=== PATIENT | female | born 1995 | race Caucasian/White ===

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

== ENCOUNTER 2017-02-27 16:09 | Emergency (ER) | payer OTHER ==
[2017-02-27 16:17] VITALS: TEMP 98.3; BMI 19.5
--- NOTE | 2017-02-27 18:29 | PDOC ---
History of Present Illness <HomarSarahcampos Jimenez - Last Filed: 02/27/17 19:07> - History of Present Illness Initial Comments: 02/27/17 19:24 The patient is a 21 year old female, with a significant past medical history of anxiety (taking zoloft) and depressed immune system, who presents to the emergency department with suprapubic discomfort with nausea today. The patient states she does not know if she is and can not recall LMP. She denies chest pain, shortness of breath, headache and dizziness. She denies fever, chills, nausea, vomit, diarrhea and constipation. She denies dysuria, frequency, urgency and hematuria. Allergies: NKDA <Farnaz Gautam - Last Filed: 02/27/17 19:27> - General Chief Complaint: Pain Stated Complaint: ABDOMINAL PAIN/UNS IF Time Seen by Provider: 02/27/17 18:01 Past History - Past Medical History GI Disorders: Yes (GERD) Other medical history: HIVES - Suicide/Smoking/Psychosocial Hx Smoking History: Never smoked Have you smoked in the past 12 months: No Information on smoking cessation initiated: No Hx Alcohol Use: No Drug/Substance Use Hx: No Substance Use Type: None <HomarPankajcampos Jimenez - Last Filed: 02/27/17 19:07> <Farnaz Gautam - Last Filed: 02/27/17 19:27> - Past Medical History Allergies/Adverse Reactions: Allergies Allergy/AdvReac Type Severity Reaction Status Date / Time No Known Allergies Allergy Verified 02/27/17 16:17 Home Medications: Ambulatory Orders Sulfamethoxazole/Trimethoprim [Bactrim Ds -] 1 tab PO BID #10 tablet 02/27/17 Review of Systems - Review of Systems Able to Perform ROS?: Yes Comments:: 02/27/17 19:25 CONSTITUTIONAL: Absent: fever, chills, diaphoresis, generalized weakness, malaise, loss of appetite HEENT: Absent: rhinorrhea, nasal congestion, throat pain, throat swelling, difficulty swallowing, mouth swelling, ear pain, eye pain, visual Changes CARDIOVASCULAR: Absent: chest pain, syncope, palpitations, irregular heart rate, lightheadedness , peripheral edema RESPIRATORY: Absent: cough, shortness of breath, dyspnea with exertion, orthopnea, wheezing, stridor, hemoptysis GASTROINTESTINAL: (+) suprapubic pain. Absent: abdominal distension, nausea, vomiting, diarrhea, constipation, melena, hematochezia GENITOURINARY: Absent: dysuria, frequency, urgency, hesitancy, hematuria, flank pain, genital pain MUSCULOSKELETAL: Absent: myalgia, arthralgia, joint swelling SKIN: Absent: rash, itching, pallor HEMATOLOGIC/IMMUNOLOGIC: Absent: easy bleeding, easy bruising, lymphadenopathy, frequent infections ENDOCRINE: Absent: unexplained weight gain, unexplained weight loss, heat intolerance, cold intolerance NEUROLOGIC: Absent: headache, focal weakness or paresthesias, dizziness, unsteady gait, seizure, mental status changes, bladder or bowel incontinence PSYCHIATRIC: Absent: anxiety, depression, suicidal or homicidal ideation, hallucinations. <Farnaz Gautam - Last Filed: 02/27/17 19:27> *Physical Exam - Vital Signs Last Vital Signs Temp Pulse Resp BP Pulse Ox 98.3 F 121 H 19 114/67 100 02/27/17 16:15 02/27/17 16:15 02/27/17 16:15 02/27/17 16:15 02/27/17 16:15 <Sarah Graf - Last Filed: 02/27/17 19:07> - Vital Signs Last Vital Signs Temp Pulse Resp BP Pulse Ox 98.3 F 121 H 19 114/67 100 02/27/17 16:15 02/27/17 16:15 02/27/17 16:15 02/27/17 16:15 02/27/17 16:15 - Physical Exam Comments: 02/27/17 19:26 GENERAL: Well developed, well nourished. Awake and alert. No acute distress. HEENT: Normocephalic, atraumatic. PERRLA, EOMI. No conjunctival pallor. Sclera are non- icteric. Moist mucous membranes. Oropharynx is clear. NECK: Supple. Full ROM. No JVD. Carotid pulses 2+ and symmetric, without bruits. No thyromegaly. No lymphadenopathy. CARDIOVASCULAR: Regular rate and rhythm. No murmurs, rubs, or gallops. Distal pulses are 2+ and symmetric. PULMONARY: No evidence of respiratory distress. Lungs clear to auscultation bilaterally. No wheezing, rales or rhonchi. ABDOMINAL: (+) Suprapubic tenderness. Soft. Non-distended. No rebound or guarding. No organomegaly. Normoactive bowel sounds. MUSCULOSKELETAL Normal range of motion at all joints. No bony deformities or tenderness. No CVA tenderness. EXTREMITIES: No cyanosis. No clubbing. No edema. No calf tenderness. SKIN: Warm and dry. Normal capillary refill. No rashes. No jaundice. NEUROLOGICAL: Alert, awake, appropriate. Cranial nerves 2-12 intact. Normoreflexic in the upper and lower extremities. Normal speech. Toes are down-going bilaterally. Gait is normal without ataxia. PSYCHIATRIC: Cooperative. Good eye contact. Appropriate mood and affect. <Farnaz Gautam - Last Filed: 02/27/17 19:27> ED Treatment Course - ADDITIONAL ORDERS Additional order review: Laboratory Results 02/27/17 02/27/17 18:29 18:29 Urine Color Yellow Urine Appearance Slcloudy Urine pH 5.0 Urine Protein Negative Urine Glucose (UA) Negative Urine Ketones Negative Urine Blood 2+ H Urine Nitrite Positive Urine Bilirubin Negative Urine Urobilinogen Negative Urine RBC 2 Urine WBC 1 Ur Epithelial Cells Few Urine Bacteria Few Urine Mucus Rare Urine HCG, Qual Negative - Medications Given in the ED: ED Medications Discontinued Medications Generic Name Dose Route Start Last Admin Trade Name Freq PRN Reason Stop Dose Admin Trimethoprim/Sulfamethoxazole 1 each 02/27/17 18:55 02/27/17 19:06 Bactrim Ds - PO 02/27/17 18:56 1 each ONCE ONE Administration <Farnaz Gautam - Last Filed: 02/27/17 19:27> Medical Decision Making - Medical Decision Making 02/27/17 18:29 21-year-old female presents with 2 days of suprapubic discomfort. She has some intermittent nausea but no vomiting, no fever, no chills, no diarrhea. She has a benign abdominal exam lmp 01/26/17 02/27/17 18:31 <Sarah Graf - Last Filed: 02/27/17 19:07> *DC/Admit/Observation/Transfer <Sarah Graf - Last Filed: 02/27/17 19:07> - Attestations Scribe Attestion: 02/27/17 19:26 Documentation prepared by Farnaz Gautam, acting as medical assistant secretary for Sarah Graf MD <Farnaz Gautam - Last Filed: 02/27/17 19:27> Diagnosis at time of Disposition: UTI (urinary tract infection) Qualifiers: Urinary tract infection type: site unspecified Hematuria presence: without hematuria Qualified Code(s): N39.0 - Urinary tract infection, site not specified - Discharge Dispostion Disposition: HOME Condition at time of disposition: Stable - Prescriptions Prescriptions: Sulfamethoxazole/Trimethoprim [Bactrim Ds -] 1 tab PO BID #10 tablet - Patient Instructions Printed Discharge Instructions: DI for Urinary Tract Infection (UTI) Additional Instructions: please olive picker your antibiotics
[2017-02-27 18:46] LABS: URINE APPEARANCE SLCLOUDY; URINE BILIRUBIN NEGATIVE (NEGATIVE); URINE BLOOD 2+ (NEGATIVE); URINE COLOR YELLOW; URINE GLUCOSE (UA) NEGATIVE (NEGATIVE); URINE KETONE NEGATIVE (NEGATIVE); URINE NITRITE POSITIVE (NEGATIVE); URINE PROTEIN NEGATIVE (NEGATIVE); URINE UROBILINOGEN NEGATIVE mg/dL (0.2-1.0)
[2017-02-27] MEDS ORDERED: SULFAMETHOXAZOLE/TRIMETHOPRIM 800MG/160MG D.S. TABLET PO ONE (18:55)
[2017-02-27 18:56] LABS: URINE BACTERIA FEW /hpf (NONE SEEN); URINE MUCUS RARE; URINE RBC 2 /hpf (0-3); URINE WBC 1 /hpf (3-5)
[2017-02-27] MEDS ORDERED: SULFAMETHOXAZOLE/TRIMETHOPRIM 800MG/160MG D.S. TABLET ONE (19:02)
[2017-02-27 19:28] VITALS: BP 107/71; PULSE 90
[2017-02-27 22:12] LABS: URINE LEUK ESTERASE TRACE (NEGATIVE)
--- NOTE | 2017-03-02 12:03 | PDOC ---
Patient Follow-up (Call Back) - Post ED Follow - Up Condition at time of discharge: Stable Disposition at time of original discharge: HOME Reason for Call Back: Abnwl. Microbiology (Patient currently on Bactrim for treatment of UTI. Urine culture preliminary shows lactose fermenting negative bacilli which should cover including Escherichia coli. Will await final results)
== END 2017-02-27 19:28 | disposition home or self-care (01) ==
LOC: JER 16:09
DX: N39.0 Urinary tract infection, site not specified (principal); F41.9 Anxiety disorder, unspecified; K21.9 Gastro-esophageal reflux disease without esophagitis
CPT/HCPCS: 81003; 81015; 84703; 87086; 87186; 99282-25

== ENCOUNTER 2017-05-11 23:38 | Emergency (ER) | payer OTHER ==
--- NOTE | 2017-05-11 23:47 | PDOC ---
History of Present Illness - General History Source: Patient Exam Limitations: No Limitations - History of Present Illness Initial Comments: 05/12/17 00:28 The patient is a 21 year old female presenting with her boyfriend, with a significant past medical history of GERD and auto immune urticaria, who presents to the emergency department with a dry persistent cough, headache and chest pain. She reports that her cough has been persistent and constant. She describes her headache as ranging from mild to moderate, without radiation or modifying factors. She reports that at times she does get chest pain, which she notes consists of a burning sensation on her chest. She denies taking her temperature at home but notes that she felt hot. She denies any recent illness. The patient denies shortness of breath, and dizziness. Denies fever, chills, nausea, vomit, diarrhea and constipation. Allergies: None Past surgical history: None reported Social history: No alcohol, tobacco or drug use reported <Zak Nava - Last Filed: 05/12/17 00:28> <Benji Sanches - Last Filed: 05/12/17 00:57> - General Stated Complaint: COUGHING Time Seen by Provider: 05/11/17 23:47 Past History <Zak Nava - Last Filed: 05/12/17 00:28> - Past Medical History GI Disorders: Yes (GERD) - Suicide/Smoking/Psychosocial Hx Smoking History: Never smoked Have you smoked in the past 12 months: No Hx Alcohol Use: No Drug/Substance Use Hx: No Substance Use Type: None <Benji Sanches - Last Filed: 05/12/17 00:57> - Past Medical History Allergies/Adverse Reactions: Allergies Allergy/AdvReac Type Severity Reaction Status Date / Time No Known Allergies Allergy Verified 05/11/17 23:56 Home Medications: Ambulatory Orders Albuterol Sulfate Inhaler - [Ventolin Hfa Inhaler -] 1 - 2 inh PO Q4H #1 inhaler 05/12/17 Review of Systems - Review of Systems Able to Perform ROS?: Yes Comments:: 05/12/17 00:26 Constitutional: No recent illness; no fever ENT: No sore throat Cardiovascular: No palpitations; no chest pain Pulmonary: (+) Cough. No trouble breathing Gastrointestinal: No nausea; no vomiting; no diarrhea Genitourinary: No urinary problems; no hematuria Skin: No rash Lymph system: No swollen glands Musculoskeletal: No joint swelling Neurological: (+) Headache. No weakness; oo numbness; No vertigo; no lightheadedness Psychiatric:No anxiety; no depression ROS STATEMENT A complete review of 10 out of 10 review of systems is taken and is negative apart from what is previously mentioned below and in the HPI. <Zak Nava - Last Filed: 05/12/17 00:28> *Physical Exam - Vital Signs Last Vital Signs Temp Pulse Resp BP Pulse Ox 98.4 F 106 H 20 122/47 97 05/11/17 23:56 05/11/17 23:56 05/11/17 23:56 05/11/17 23:56 05/11/17 23:56 - Physical Exam Comments: 05/12/17 00:27 Vitals: Triage vital signs reviewed General Appearance: No acute distress, well nourished, well developed Head: Atraumatic Eyes: Pupils equal reactive round, extraocular movement intact Ears: TM's normal bilaterally Nose: Nares patent bilaterally; no nasal congestion Throat: Posterior oropharynx without erythema, mucous membranes moist Neck: Supple; No nuchal rigidity Chest Wall: Nontender Cardiac: Regular rate and rhythm, no murmurs, no rubs, no gallops Lungs: Clear to auscultation bilateral, good air movement bilaterally Abdomen: Soft, nondistended, normal bowel sounds, nontender to palpation Rectal: Exam deferred Extremities: Full range of motion to all extremities, no cyanosis, clubbing, or edema Skin: Warm and dry, no rashes or lesions, no rash, no petechiae Neuro: AOX3; Cranial Nerves 2-12 grossly intact, Strength intact to all extremities, Sensation intact to all extremities, gait normal Psych: Normal mood, normal affect <Zak Nava - Last Filed: 05/12/17 00:28> Medical Decision Making - Medical Decision Making 05/12/17 00:56 History and examination consistent with postviral reactive airway disease Status post 1 DuoNeb patient feels much better coughing improved We'll discharge with MDI and have patient follow up with PCP this week. No acute findings on lung exam no indication for x-ray at this point Findings, the need for follow-up, strict return instructions discussed with patient. <Benji Sanches - Last Filed: 05/12/17 00:57> *DC/Admit/Observation/Transfer - Attestations Scribe Attestion: 05/12/17 00:24 Documentation prepared by Zak Nava, acting as medical resident for Benji Sanches MD <Zak Nava - Last Filed: 05/12/17 00:28> - Discharge Dispostion Admit: No <Benji Sanches - Last Filed: 05/12/17 00:57> Diagnosis at time of Disposition: Viral syndrome - Patient Instructions Printed Discharge Instructions: DI for Viral Upper Respiratory Infection -- Adult Additional Instructions: Ventolin metered-dose inhaler as prescribed. Follow-up with her primary care provider this week. Return to the emergency department for any severe worsening symptoms or for any concerns.
[2017-05-11 23:57] VITALS: BP 122/47; PULSE 106; TEMP 98.4; BMI 18.3
[2017-05-12] MEDS ORDERED: ALBUTEROL SO4 2.5/IPRATROPIUM 0.5 INH SOL 3 ML VIAL.NEB. NEB ONE ×2 (00:03→00:24)
== END 2017-05-12 01:08 | disposition home or self-care (01) ==
LOC: JER 23:38
PROC: 3E0F7GC Introduction of Other Therapeutic Substance into Respiratory Tract, Via Natural or Artificial Opening (ICD-10-PCS; principal; 2017-05-11)
DX: J06.9 Acute upper respiratory infection, unspecified (principal); B97.89 Other viral agents as the cause of diseases classified elsewhere; K21.9 Gastro-esophageal reflux disease without esophagitis; Z87.2 Personal history of diseases of the skin and subcutaneous tissue
CPT/HCPCS: 99281-25

== ENCOUNTER 2017-10-22 16:17 | Emergency (ER) | payer OTHER ==
[2017-10-22 16:28] VITALS: BP 117/71; PULSE 126; TEMP 98.4; BMI 20.2
--- NOTE | 2017-10-22 16:49 | PDOC ---
History of Present Illness - General Chief Complaint: Psychiatric Stated Complaint: COUGHING/ANXIETY Time Seen by Provider: 10/22/17 16:44 - History of Present Illness Initial Comments: 10/22/17 16:48 21 yo F with h/o GERD, anxiety who p/w CP, cough, and SOB. Patient reports 2 days of non pleuritic, non radiating, retrosternal chest tightness, nausea without vomitting, tremulousness, heart racing, and clear productive cough. No dientifiable triggers. Denies recent social triggers. Recovering from recent viral URI. Also endorses suprapubic discomfort x 1 day. No dysuria, hematuria, vaginal bleeding/burn/itch/discharge. Recently ran out of Zoloft medication. Scheduled to f/w psych at end of month. Denies SI, HI, self harm behavior. Denies F/C, hemoptysis, wheezing, palpitations, leg swelling/pain, diaphoresis, abdominal pain, diarrhea, constipation, urinary complaints, weakness, lightheadedness, sensory changes. PMHx: as noted above. H/o nml endoscopy. On depot contraception. Denies h/o PE/ DVT. Denies h/o cardiac or endocrinology workup. ROS: as noted above SHx: Denies Etoh. Denies h/o IVDA. Endorses recreational hookah/tobacco. Denies recent travel, surgery, or trauma. Allergies: NKDA PMD: Dr. Stephanie Adler, psychiatry [facility]. Past History - Past Medical History Allergies/Adverse Reactions: Allergies Allergy/AdvReac Type Severity Reaction Status Date / Time No Known Allergies Allergy Verified 10/22/17 16:24 Home Medications: Ambulatory Orders Albuterol Sulfate Inhaler - [Ventolin Hfa Inhaler -] 1 - 2 inh PO Q4H #1 inhaler 05/12/17 Sertraline HCl [Zoloft] 100 mg PO DAILY 14 Days #14 tablet MDD 1 tab 10/22/17 COPD: No GI Disorders: Yes (GERD) Psychiatric Problems: Yes (ANXIETY) - Suicide/Smoking/Psychosocial Hx Smoking History: Never smoked Have you smoked in the past 12 months: No Hx Alcohol Use: No Drug/Substance Use Hx: No Substance Use Type: None Review of Systems - Review of Systems Comments:: 10/22/17 16:48 GENERAL/CONSTITUTIONAL: No fever or chills. No weakness. HEAD, EYES, EARS, NOSE AND THROAT: No change in vision. No ear pain or discharge. No sore throat. CARDIOVASCULAR: + chest pain and shortness of breath RESPIRATORY: + cough. No wheezing, or hemoptysis. GASTROINTESTINAL: No nausea, vomiting, diarrhea or constipation. GENITOURINARY: + Suprpapubic pain. No dysuria, frequency, or change in urination. MUSCULOSKELETAL: No joint or muscle swelling or pain. No neck or back pain. SKIN: No rash NEUROLOGIC: No headache, vertigo, loss of consciousness, or change in strength/ sensation. ENDOCRINE: No increased thirst. No abnormal weight change HEMATOLOGIC/LYMPHATIC: No anemia, easy bleeding, or history of blood clots. ALLERGIC/IMMUNOLOGIC: No hives or skin allergy. *Physical Exam - Vital Signs Last Vital Signs Temp Pulse Resp BP Pulse Ox 98.4 F 126 H 19 117/71 96 10/22/17 16:24 10/22/17 16:24 10/22/17 16:24 10/22/17 16:24 10/22/17 16:24 - Physical Exam Comments: 10/22/17 16:48 GENERAL: Awake, alert, and fully oriented, in no acute distress HEAD: No signs of trauma, normocephalic, atraumatic EYES: PERRLA, EOMI, sclera anicteric, conjunctiva clear ENT: Hearing grossly normal, nares patent, oropharynx clear without exudates. Moist mucosa NECK: Normal ROM, supple, no lymphadenopathy, JVD, or masses LUNGS: No distress, speaks full sentences, clear to auscultation bilaterally HEART: Irregular rate and nml rhythm, normal S1 and S2, no murmurs, rubs or gallops, peripheral pulses normal and equal bilaterally. ABDOMEN: + epigastric ttp. Soft, nontender, normoactive bowel sounds. No guarding, no rebound. No masses EXTREMITIES : Normal inspection, Normal range of motion, no edema. No clubbing or cyanosis. SKIN: Warm, Dry, normal turgor, no rashes or lesions noted ED Treatment Course - LABORATORY CBC & Chemistry Diagram: 10/22/17 17:00 10/22/17 17:00 Medical Decision Making - Medical Decision Making 10/22/17 17:16 11 yo F with h/o GERD, anxiety who p/w CP, SOB, tremulousness, and cough x 2 days. HR 126, vitals otherwise wnl, AF, A&OX3. Low risk PE based on Weils criteria. R/o PNA. ACS/NJ r/o. Probable anxiety related disorder. Will assess for thyroid dysfunction, electrolyte abnml, toxic or metabolic derangements,acid -base disturbances, or underlying infection. ED Course: CBC,CMP,Cardiac Pr., TSH EKG, CXR UA, Urine Cx. 10/22/17 18:08 CBC: Unremarkable CK: 209- likely 2/2 tremors. 10/22/17 20:21 Preliminary CXR Unremarkable EKG: NSR, with nml interval and axis. Absent acute SIMONE, STD, or TWI. Motion artifact present. Zoloft sent to pharmacy. Patient stable for d/c with return precautions. Advised to f/u with PMD and psych. Psych apt. scheduled for this Sunday with pt. outpt. provider. 10/22/17 21:18 CXR: Unremarkable. No acute pathology on preliminary read. *DC/Admit/Observation/Transfer Diagnosis at time of Disposition: Cough, Chest pain at rest - Prescriptions Prescriptions: Sertraline HCl [Zoloft] 100 mg PO DAILY 14 Days #14 tablet MDD 1 tab - Referrals Referrals: Stephanie Juárez MD [Primary Care Provider] - - Patient Instructions Printed Discharge Instructions: DI for Anxiety -- Adult Additional Instructions: Please return to the emergency department with any new or worsening symptoms or concerns. Please follow up with your primary care physician within 72 hours. P - Post Discharge Activity - Attestations Physician Attestion: 10/22/17 17:33 I attest to the information provided in this note.
[2017-10-22] MEDS ORDERED: ONDANSETRON 4 MG TABLET PO ONE (17:15)
[2017-10-22] MEDS ORDERED: MAG HYDROX/AL HYDROX/SIMETH 30 ML UNIT-DOSE CUP PO ONE (17:15)
[2017-10-22] MEDS ORDERED: RANITIDINE HCL 150 MG TABLET (FP) PO ONE (17:15)
[2017-10-22 17:20] LABS: BASO % 0.6 % (0-2.0); EOS % 0.9 % (0-4.5); HEMATOCRIT 40.4 % (32.4-45.2); HEMOGLOBIN 13.3 GM/dL (10.7-15.3); LYMPH % 23.8 % (8-40); MCH 28.2 pg (25.7-33.7); MEAN CELL VOLUME 85.4 fl (80-96); MEAN PLT VOLUME 7.9 fl (7.5-11.1); MONO % 9.5 % (3.8-10.2); NEUT % 65.2 % (42.8-82.8); PLATELET COUNT 387 K/MM3 (134-434); RBC 4.73 M/mm3 (3.60-5.2); RDW 13.2 % (11.6-15.6); WHITE BLOOD COUNT 7.7 K/mm3 (4.0-10.0)
[2017-10-22 17:28] LABS: URINE APPEARANCE SLCLOUDY; URINE BILIRUBIN NEGATIVE (<2.0 mg/dL); URINE BLOOD 2+ (NEGATIVE); URINE COLOR YELLOW; URINE GLUCOSE (UA) NEGATIVE (NEGATIVE); URINE KETONE NEGATIVE (NEGATIVE); URINE LEUK ESTERASE NEGATIVE (NEGATIVE); URINE NITRITE NEGATIVE (NEGATIVE); URINE PROTEIN NEGATIVE (NEGATIVE)
[2017-10-22 17:39] LABS: INR 1.26 (0.82-1.09); PROTHROMBIN TIME (PATIENT) 14.2 SEC (9.7-13.0)
[2017-10-22 17:47] LABS: ALBUMIN 4.4 g/dl (3.4-5.0); ALK PHOS 133 U/L (45-117); ANION GAP 8 (8-16); BILIRUBIN,TOTAL 0.4 mg/dL (0.2-1.0); BLOOD UREA NITROGEN 12 mg/dL (7-18); CHLORIDE 107 mmol/L (98-107); CO2 25 mmol/L (21-32); CREATININE 0.8 mg/dL (0.55-1.02); GLUCOSE,RANDOM 83 mg/dL (74-106); POTASSIUM 3.7 mmol/L (3.5-5.1); SGOT/AST 24 U/L (15-37); SGPT/ALT 38 U/L (12-78); SODIUM 140 mmol/L (136-145); TOT PROT 8.7 g/dl (6.4-8.2)
--- NOTE | 2017-10-22 18:03 | PDOC ---
Attending Attestation - HPI HPI: 10/22/17 18:04 The patient is a 21 year old female with a significant PMH of GERD and anxiety who presents to the emergency department with cough, lower abdominal pain and anxiety. The patient is complaining of non productive cough and suprapubic discomfort. The patient also endorses increased anxiety secondary to her mother moving away recently. The patient appears tremulous and anxious during presentation. The patient denies cardiac work-up in the past. Patient has recently run out of [employer]. The patient has a scheduled appointment with her therapist on Sunday. The patient denies palpitations, leg swelling, shortness of breath, headache and dizziness. Denies fever, chills, nausea, vomit, diarrhea and constipation. Denies vaginal bleeding or burning, dysuria, frequency, urgency and hematuria. Allergies: NKA Past surgical history: Social history: No reported alcohol or drug use. The patient endorses hookah/ tobacco use occasionally. PCP: Dr. Stephanie Adler, psychiatry [facility]. - Physicial Exam PE: 10/22/17 18:11 GENERAL: (+) Anxious, tremulous. Well-appearing, well-nourished. HEENT: Normocephalic, atraumatic. PERRL, EOM intact. CARDIOVASCULAR: Normal S1, S2. Regular rate and rhythm. PULMONARY: Clear to auscultation bilaterally. ABDOMEN: (+) Suprapubic discomfort. Soft, non-distended, non-tender. EXTREMITIES: Normal ROM in all four extremities. No gross deformities. SKIN: Warm, dry. No rash NEUROLOGICAL: No focal neurological deficits. <Kindra Maldonado - Last Filed: 10/22/17 18:11> - Resident Resident Name: Coy Whitmore - ED Attending Attestation I have performed the following: I have examined & evaluated the patient, The case was reviewed & discussed with the resident, I agree w/resident's findings & plan, Exceptions are as noted - Medical Decision Making 10/22/17 21:18 89-year-old female with extensive history of anxiety presents with complaints of palpitations, cough, increased anxiety and suprapubic discomfort. Labs reviewed, chest x-ray, no infiltrates, no pneumothorax. Chemistries unremarkable. Patient has negative test. EKG is regular rate and rhythm with no signs of ischemia or arrhythmia. Impression anxiety. Patient has appointment with her therapist this Sunday and will follow-up <Sarah Graf - Last Filed: 10/22/17 21:19>
[2017-10-22] MEDS ORDERED: ONDANSETRON *ODT* 4 MG TABLET ONE (18:15)
[2017-10-22] MEDS ORDERED: RANITIDINE HCL 150 MG TABLET (FP) ONE ×2 (18:15→18:27)
[2017-10-22] MEDS ORDERED: MAG HYDROX/AL HYDROX/SIMETH 30 ML UNIT-DOSE CUP ONE (18:15)
[2017-10-22 19:09] LABS: EPI CELLS RARE /HPF (FEW); URINE MUCUS MANY
[2017-10-22] MEDS ORDERED: SERTRALINE HCL 50 MG TABLET (FP) PO ONE (20:20)
[2017-10-22] MEDS ORDERED: SERTRALINE HCL 50 MG TABLET (FP) ONE (20:57)
--- NOTE | 2017-10-23 13:14 | EKG ---
Test Reason : Blood Pressure : / mmHG Vent. Rate : 086 BPM Atrial Rate : 086 BPM P-R Int : 124 ms QRS Dur : 074 ms QT Int : 376 ms P-R-T Axes : 060 060 041 degrees QTc Int : 449 ms NORMAL SINUS RHYTHM WITH SINUS ARRHYTHMIA NORMAL ECG NO PREVIOUS ECGS AVAILABLE Confirmed by MD JONY, VANDANA ([id number]) on 10/23/2017 1:13:47 PM Referred By: Confirmed By:VANDANA BORGES MD
== END 2017-10-22 21:43 | disposition home or self-care (01) ==
LOC: JER 16:17
DX: R07.89 Other chest pain (principal); F41.9 Anxiety disorder, unspecified; K21.9 Gastro-esophageal reflux disease without esophagitis
CPT/HCPCS: 36415; 71046-TC-FY; 80053; 81003; 81015; 82550; 82553; 84443; 84484; 84703; 85025; 85610; 87086; 93005; 93010; 99281-25

== ENCOUNTER 2018-03-07 20:18 | Emergency (ER) | payer OTHER ==
[2018-03-07 20:52] VITALS: BP 123/68; PULSE 88; TEMP 98; BMI 20.2
--- NOTE | 2018-03-07 20:53 | PDOC ---
Rapid Medical Evaluation Time Seen by Provider: 03/07/18 20:50 Medical Evaluation: Allergies Allergy/AdvReac Type Severity Reaction Status Date / Time No Known Allergies Allergy Verified 10/22/17 16:24 03/07/18 20:51 Pt presents to the ED with R knee pain. Made worse with movement Exam: ambulatory Orders: x-ray, urine Pt to proceed to ED for further evaluation Discharge Disposition - Diagnosis Knee pain - Referrals - Patient Instructions - Post Discharge Activity
[2018-03-07] MEDS ORDERED: IBUPROFEN 600 MG TABLET (FP) PO ONE ×2 (22:34)
--- NOTE | 2018-03-07 22:40 | PDOC ---
History of Present Illness - General Chief Complaint: Pain Stated Complaint: RT KNEE INJURY Time Seen by Provider: 03/07/18 20:50 History Source: Patient Exam Limitations: No Limitations - History of Present Illness Initial Comments: 03/07/18 22:35 HISTORY OF PRESENT ILLNESS: 22-year-old woman without significant medical history presents emergency Department with atraumatic right knee pain tonight status post slip and fall. Patient states she was standing on the running board of a vehicle when she lost her balance causing her to slip. She reports "I knee went one way my body went the other." Patient states she has no pain while walking but does feel instability when walking especially up and down stairs. No recent travel or sick contacts. PAST MEDICAL HISTORY: Asthma, anxiety SURGICAL HISTORY: Denies ALLERGIES: No known drug allergies REVIEW OF SYSTEMS General/Constitutional: Denies fever or chills. Denies weakness, weight change. HEENT: Denies change in vision. Denies ear pain or discharge. Denies sore throat. Cardiovascular: Denies chest pain or shortness of breath. Respiratory: Denies cough, wheezing, or hemoptysis. Gastrointestinal: Denies nausea, vomiting, diarrhea or constipation. Denies rectal bleeding. Genitourinary: Denies dysuria, frequency, or change in urination. Musculoskeletal: Right knee pain. Denies neck or back pain. Skin and breasts: Denies rash or easy bruising. Neurologic: Denies headache, vertigo, loss of consciousness, or loss of sensation. Psychiatric: Denies depression or anxiety. Endocrine: Denies increased thirst. Denies abnormal weight change. Hematologic/Lymphatic: Denies anemia, easy bleeding, or history of blood clots. Allergic/Immunologic: Denies hives or skin allergy. Denies latex allergy. PHYSICAL EXAM General Appearance: Well-appearing, appropriately dressed. No apparent distress , no intoxication. HEENT: EOMI, PERRLA, normal ENT inspection, normal voice, TMs normal, pharynx normal. No conjunctival pallor. No photophobia, scleral icterus. Neck: Supple. Trachea midline. No tenderness, rigidity, carotid bruit, stridor , lymphadenopathy, or thyromegaly. Respiratory/Chest: Lungs CTAB. No shortness of breath, chest tenderness, respiratory distress, accessory muscle use. No crackles, rales, rhonchi, stridor , wheezing, dullness Cardiovascular: RRR. S1, S2. No JVD, murmur, bradycardia, tachycardia. Vascular Pulses: Dorsalis-Pedis (R): 2+, Dorsalis-Pedis (L): 2+ Gastrointestinal/Abdominal: Normal bowel sounds. Abdomen soft, non-distended. No tenderness or rebound tenderness. No organomegaly, pulsatile mass, guarding, hernia, hepatomegaly, splenomegaly. Lymphatic: No adenopathy, tenderness. Musculoskeletal/Extremities: Normal inspection. FROM of all extremities, normal capillary refill. Pelvis Stable. No CVA tenderness. No tenderness to extremities, pedal edema, swelling, erythema or deformity. -Drake's test. Integumentary: Appropriate color, dry, warm. No cyanosis, erythema, jaundice or rash Neurologic: fine artist II-XII intact. Fully oriented, alert. Appropriate mood/affect. Motor strength 5/5. No appreciable EOM palsy, facial droop or sensory deficit. Past History - Past Medical History Allergies/Adverse Reactions: Allergies Allergy/AdvReac Type Severity Reaction Status Date / Time No Known Allergies Allergy Verified 03/07/18 20:52 Home Medications: Ambulatory Orders Sertraline HCl [Zoloft] 100 mg PO DAILY 14 Days #14 tablet MDD 1 tab 10/22/17 COPD: No GI Disorders: Yes (GERD) Psychiatric Problems: Yes (ANXIETY) - Suicide/Smoking/Psychosocial Hx Smoking History: Never smoked Have you smoked in the past 12 months: No Hx Alcohol Use: No Drug/Substance Use Hx: No Substance Use Type: None *Physical Exam - Vital Signs Last Vital Signs Temp Pulse Resp BP Pulse Ox 98 F 88 18 123/68 100 03/07/18 20:50 03/07/18 20:50 03/07/18 20:50 03/07/18 20:50 03/07/18 20:50 ED Treatment Course - ADDITIONAL ORDERS Additional order review: Laboratory Results 03/07/18 21:00 Urine HCG, Qual Negative Medical Decision Making - Medical Decision Making 03/07/18 22:35 A/P: 22-year-old female with right knee pain status post slip and fall Negative Drake test X-rays performed by rapid medical evaluation as read by me: No acute fractures or dislocations. Motrin 600 mg orally now Discharge home with orthopedic follow-up with Dr. Chavez. *DC/Admit/Observation/Transfer Diagnosis at time of Disposition: Knee pain Qualifiers: Chronicity: acute Laterality: right Qualified Code(s): M25.561 - Pain in right knee - Discharge Dispostion Disposition: HOME Condition at time of disposition: Stable Decision to Admit order: No - Referrals - Patient Instructions Additional Instructions: Dr. Austin Chavez has orthopedic clinic hours for Medicare/Medicaid Orthopedic referral patients Office is located on [facility] ; call for appointment Clinic is open Sunday from 9 AM to 12 noon and afternoon from to 4pm - Post Discharge Activity Forms/Work/School Notes: Back to Work
== END 2018-03-07 22:39 | disposition home or self-care (01) ==
LOC: JERFT 20:18
DX: M25.561 Pain in right knee (principal); V48.7XXA Person on outside of car injured in noncollision transport accident in traffic accident, initial encounter; Y92.414 Local residential or business street as the place of occurrence of the external cause; Y93.89 Activity, other specified; Y99.8 Other external cause status
CPT/HCPCS: 73560-TC-RT-FY; 84703; 99282-25

== ENCOUNTER 2018-06-16 10:39 | Emergency (ER) | payer OTHER ==
[2018-06-16 10:54] VITALS: BP 106/67; PULSE 89; TEMP 98.3; BMI 21.2
--- NOTE | 2018-06-16 11:37 | PDOC ---
History of Present Illness - General Chief Complaint: Cold Symptoms Stated Complaint: COUGHING Time Seen by Provider: 06/16/18 11:18 History Source: Patient Exam Limitations: No Limitations - History of Present Illness Timing/Duration: reports: just prior to arrival Associated Symptoms: reports: cough, nasal congestion, nasal drainage, sore throat. denies: dizziness, earache, facial pain (sorethroat and cough X 3 days) , fever/chills, headache, shortness of breath, sinus infection Past History - Travel Traveled outside of the country in the last 30 days: No Close contact w/someone who was outside of country & ill: Yes - Past Medical History Allergies/Adverse Reactions: Allergies Allergy/AdvReac Type Severity Reaction Status Date / Time No Known Allergies Allergy Verified 03/07/18 20:52 Home Medications: Ambulatory Orders Sertraline HCl [Zoloft] 100 mg PO DAILY 14 Days #14 tablet MDD 1 tab 10/22/17 Benzonatate [Tessalon Pearls -] 100 mg PO TID #21 capsule 06/16/18 Ibuprofen 600 mg PO ACDIN 7 Days #21 tablet 06/16/18 COPD: No GI Disorders: Yes (GERD) Psychiatric Problems: Yes (ANXIETY) - Immunization History Immunization Up to Date: No - Suicide/Smoking/Psychosocial Hx Smoking History: Never smoked Have you smoked in the past 12 months: No Information on smoking cessation initiated: No Hx Alcohol Use: No Drug/Substance Use Hx: No Substance Use Type: None Review of Systems - Review of Systems Is the patient limited Turkmen proficient: No Constitutional: No: Chills, Fever HEENTM: Yes: Throat Pain. No: Ocular Prothesis, Ear Discharge, Nose Pain, Hearing Loss, Throat Swelling, Mouth Pain, Mouth Swelling Respiratory: Yes: Cough, Productive cough. No: Orthopnea, Shortness of Breath, Wheezing Cardiac (ROS): No: Chest Pain, Lightheadedness Neurological: No: Headache, Numbness *Physical Exam - Vital Signs Last Vital Signs Temp Pulse Resp BP Pulse Ox 98.3 F 89 18 106/67 99 06/16/18 10:50 06/16/18 10:50 06/16/18 10:50 06/16/18 10:50 06/16/18 10:50 - Physical Exam General Appearance: Yes: Nourished HEENT: positive: Pharyngeal Erythema, Tonsillar Erythema, Nasal Congestion, Rhinorrhea. negative: Tonsillar Exudate, Sinus Tenderness, Excessive drooling Respiratory/Chest: positive: Lungs Clear, Normal Breath Sounds Cardiovascular: positive: Regular Rhythm, Regular Rate, S1, S2 Neurologic: positive: ergonomist II-XII NML intact, Fully Oriented, Alert Moderate Sedation - Procedure Monitoring Vital Signs: Procedure Monitoring Vital Signs Temperature 98.3 F 06/16/18 10:50 Pulse Rate 89 06/16/18 10:50 Respiratory Rate 18 06/16/18 10:50 Blood Pressure 106/67 06/16/18 10:50 O2 Sat by Pulse Oximetry (%) 99 06/16/18 10:50 Medical Decision Making - Medical Decision Making 06/16/18 11:36 22-year-old female with cough and congestion 3 days. Patient also reports sore throat she denies any fever chills. She was seen at a local [facility] 3 days ago for the above symptoms and was discharged with a upper respiratory diagnosis. Today she is complaining of sore throat. 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 She does have some nasal discharge on exam. Rapid strep sent and is pending. *DC/Admit/Observation/Transfer Diagnosis at time of Disposition: URI, acute - Discharge Dispostion Disposition: HOME Condition at time of disposition: Stable - Prescriptions Prescriptions: Benzonatate [Tessalon Pearls -] 100 mg PO TID #21 capsule Ibuprofen 600 mg PO ACDIN 7 Days #21 tablet - Referrals Referrals: Ken Jackson MD [Staff Physician] - - Patient Instructions Printed Discharge Instructions: DI for Common Cold Additional Instructions: I discussed the physical exam findings, ancillary test results and final diagnoses with the patient. I answered all of the patient's questions. The patient was satisfied with the care received and felt comfortable with the discharge plan and treatment plan. The patient will call their primary care physician within 24 hours to arrange follow-up and will return to the Emergency Department with any new, persistant or worsening symptoms. - Post Discharge Activity
== END 2018-06-16 12:15 | disposition home or self-care (01) ==
LOC: JERFT 10:39
DX: J06.9 Acute upper respiratory infection, unspecified (principal)
CPT/HCPCS: 87070; 87880; 99281-25

== ENCOUNTER 2018-06-18 14:03 | Emergency (ER) | payer OTHER ==
[2018-06-18 14:11] VITALS: BP 111/74; PULSE 105; TEMP 98.5; BMI 21.2
[2018-06-18] MEDS ORDERED: guaiFENesin/CODEINE 10 ML UNIT-DOSE CUPS PO ONE (14:51)
--- NOTE | 2018-06-18 14:51 | PDOC ---
History of Present Illness - General Chief Complaint: Sore Throat Stated Complaint: SORE THROAT/COUGH Time Seen by Provider: 06/18/18 14:35 History Source: Patient - History of Present Illness Timing/Duration: reports: other Past History - Past Medical History Allergies/Adverse Reactions: Allergies Allergy/AdvReac Type Severity Reaction Status Date / Time No Known Allergies Allergy Verified 03/07/18 20:52 Home Medications: Ambulatory Orders Sertraline HCl [Zoloft] 100 mg PO DAILY 14 Days #14 tablet MDD 1 tab 10/22/17 Benzonatate [Tessalon Pearls -] 100 mg PO TID #21 capsule 06/16/18 Ibuprofen 600 mg PO ACDIN 7 Days #21 tablet 06/16/18 COPD: No GI Disorders: Yes (GERD) Psychiatric Problems: Yes (ANXIETY) - Immunization History Immunization Up to Date: No - Suicide/Smoking/Psychosocial Hx Smoking History: Never smoked Have you smoked in the past 12 months: No Hx Alcohol Use: No Drug/Substance Use Hx: No Substance Use Type: None Review of Systems - Review of Systems Constitutional: No: Chills, Fever HEENTM: Yes: Throat Pain. No: Ear Pain Respiratory: Yes: Cough. No: Shortness of Breath, Wheezing *Physical Exam - Vital Signs Last Vital Signs Temp Pulse Resp BP Pulse Ox 98.5 F 105 H 17 111/74 100 06/18/18 14:07 06/18/18 14:07 06/18/18 14:07 06/18/18 14:07 06/18/18 14:07 - Physical Exam Comments: 06/18/18 14:59 coughing in ED General Appearance: Yes: Appropriately Dressed HEENT: positive: Normal ENT Inspection, TMs Normal, Pharynx Normal. negative: Scleral Icterus (R), Scleral Icterus (L) Neck: positive: Supple. negative: Lymphadenopathy (R), Lymphadenopathy (L) Respiratory/Chest: positive: Lungs Clear, Normal Breath Sounds. negative: Respiratory Distress Cardiovascular: positive: Regular Rate, S1, S2 Integumentary: positive: Dry, Warm Neurologic: positive: Fully Oriented, Alert, Normal Mood/Affect Moderate Sedation - Procedure Monitoring Vital Signs: Procedure Monitoring Vital Signs Temperature 98.5 F 06/18/18 14:07 Pulse Rate 105 H 06/18/18 14:07 Respiratory Rate 17 06/18/18 14:07 Blood Pressure 111/74 06/18/18 14:07 O2 Sat by Pulse Oximetry (%) 100 06/18/18 14:07 ED Treatment Course - RADIOLOGY Radiology Studies Ordered: Category Date Time Status CHEST PA & LAT [RAD] Stat Radiology 06/18/18 14:49 Ordered Medical Decision Making - Medical Decision Making 06/18/18 14:49 22 yo F, currently being workep for possible autoimmune condition,not on meds, here for persistent dry cough w/ sore throat x 5 days. Neg strep in ED 3 days ago. Taking 600mg motrin and tessalon with no relief/. No ear pain, sob, body aches, f/c. No tob use See exam M/l viral URI Multiple ED visits for symptoms Neg strep 3 days ago Taking motrin and tessalon w/ no relief -CXR r/o PNA today though low clinical suspicion -anticipate dc w/ supportive tx 06/18/18 15:39 CXR neg. Dc w/ supportive tx and pmd f/u at this time *DC/Admit/Observation/Transfer Diagnosis at time of Disposition: URI (upper respiratory infection) Qualifiers: URI type: unspecified viral URI Qualified Code(s): J06.9 - Acute upper respiratory infection, unspecified - Discharge Dispostion Disposition: HOME Condition at time of disposition: Good - Referrals - Patient Instructions - Post Discharge Activity Forms/Work/School Notes: Back to Work
[2018-06-18] MEDS ORDERED: guaiFENesin/CODEINE 5 ML UNIT-DOSE CUPS PO ONE (15:03)
== END 2018-06-18 15:46 | disposition home or self-care (01) ==
LOC: JERFT 14:03
DX: J06.9 Acute upper respiratory infection, unspecified (principal); B97.89 Other viral agents as the cause of diseases classified elsewhere; F41.9 Anxiety disorder, unspecified; K21.9 Gastro-esophageal reflux disease without esophagitis
CPT/HCPCS: 71046-TC-FY; 84703; 99281-25

== ENCOUNTER 2018-06-29 12:33 | Emergency (ER) | payer SELFPAY ==
[2018-06-29 12:40] VITALS: BP 113/69; PULSE 97; TEMP 98.3; BMI 21.4
--- NOTE | 2018-06-29 13:35 | PDOC ---
History of Present Illness - General Chief Complaint: Bite Stated Complaint: DOG BITE Time Seen by Provider: 06/29/18 12:55 - History of Present Illness Initial Comments: 06/29/18 13:30 22-year-old female with a past medical history significant for depression presents for evaluation after a dog bite. 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 She states she does not want throughout the dog bite paperwork because she does not want to get the client of the clinic in trouble. She is current on tetanus. Past History - Past Medical History Allergies/Adverse Reactions: Allergies Allergy/AdvReac Type Severity Reaction Status Date / Time No Known Allergies Allergy Verified 06/29/18 12:40 Home Medications: Ambulatory Orders Sertraline HCl [Zoloft] 100 mg PO DAILY 14 Days #14 tablet MDD 1 tab 10/22/17 Benzonatate [Tessalon Pearls -] 100 mg PO TID #21 capsule 06/16/18 Ibuprofen 600 mg PO ACDIN 7 Days #21 tablet 06/16/18 Amox-Tr/K Cl [Augmentin - 875Mg Tablet] 1 tab PO BID #20 tablet 06/29/18 COPD: No GI Disorders: Yes (GERD) Psychiatric Problems: Yes (ANXIETY) - Immunization History Immunization Up to Date: No - Suicide/Smoking/Psychosocial Hx Smoking History: Never smoked Have you smoked in the past 12 months: No Hx Alcohol Use: No Drug/Substance Use Hx: No Substance Use Type: None Review of Systems - Review of Systems Integumentary: Yes: See HPI *Physical Exam - Vital Signs Last Vital Signs Temp Pulse Resp BP Pulse Ox 98.3 F 97 H 18 113/69 99 06/29/18 12:36 06/29/18 12:36 06/29/18 12:36 06/29/18 12:36 06/29/18 12:36 - Physical Exam Comments: 06/29/18 13:31 HEAD: NC/AT EYES: Conjuntiva clear FACE: There are 2 small superficial puncture wounds with superficial excoriations on the left cheek adjacent to one another. There is no subcutaneous fat exposed. MS: Full ROM in all joints without edema NEUROLOGIC: No gross sensory or motor deficits, NVID SKIN: Normal color and temperature no lesions or rashes Moderate Sedation - Procedure Monitoring Vital Signs: Procedure Monitoring Vital Signs Temperature 98.3 F 06/29/18 12:36 Pulse Rate 97 H 06/29/18 12:36 Respiratory Rate 18 06/29/18 12:36 Blood Pressure 113/69 06/29/18 12:36 O2 Sat by Pulse Oximetry (%) 99 06/29/18 12:36 Medical Decision Making - Medical Decision Making 06/29/18 13:33 The wounds were cleaned with Betadine soap. Left open to air. Augmentin was prescribed 06/29/18 13:34 Patient refused plastic surgery consultation. I will give her plastic surgery and follow-up. There is no primary closure necessary. *DC/Admit/Observation/Transfer Diagnosis at time of Disposition: Dog bite of face - Discharge Dispostion Disposition: HOME Condition at time of disposition: Stable Decision to Admit order: No - Prescriptions Prescriptions: Amox-Tr/K Cl [Augmentin - 875Mg Tablet] 1 tab PO BID #20 tablet - Referrals Referrals: Lit Wilkinson MD [Staff Physician] - - Patient Instructions Printed Discharge Instructions: DI for Dog Bite Additional Instructions: Keep the area clean with soap and water. Please take the antibiotics as directed and finish the entire course. Follow-up plastic surgery one to 2 days for further evaluation and treatment options. And return to the emergency room should symptoms worsen or go unresolved. Return to the emergency room should he develop any redness swelling pain or drainage to the area of the bite. - Post Discharge Activity
== END 2018-06-29 13:43 | disposition home or self-care (01) ==
LOC: JERFT 12:33
DX: S00.87XA Other superficial bite of other part of head, initial encounter (principal); W54.0XXA Bitten by dog, initial encounter; Y93.K9 Activity, other involving animal care; Y92.89 Other specified places as the place of occurrence of the external cause; Y99.0 Civilian activity done for income or pay
CPT/HCPCS: 99281-25

== ENCOUNTER 2018-09-23 18:02 | Emergency (ER) | payer OTHER ==
[2018-09-23 18:12] VITALS: BMI 25.2
[2018-09-23] MEDS ORDERED: ONDANSETRON 4 MG TABLET PO ONE ×2 (18:13→18:25)
--- NOTE | 2018-09-23 18:13 | PDOC ---
Rapid Medical Evaluation Time Seen by Provider: 09/23/18 18:09 Medical Evaluation: Allergies Allergy/AdvReac Type Severity Reaction Status Date / Time No Known Allergies Allergy Verified 06/29/18 12:40 09/23/18 18:09 I have performed a brief in-person evaluation of this patient. The patient presents with a chief complaint of abdominal discomfort since . Patient was seen by gastroenteritis today prescribed omeprazole and zofran did not take the medication as yet but states her stomach is on fire. Pertinent physical exam findings: NAD even and unlabored breathing generalized abdominal tenderness I have ordered the following zofran The patient will proceed to the ED for further evaluation.
--- NOTE | 2018-09-23 19:31 | PDOC ---
*Physical Exam - Vital Signs Last Vital Signs Temp Pulse Resp BP Pulse Ox 98.1 F 101 H 16 135/63 99 09/23/18 18:09 09/23/18 18:09 09/23/18 18:09 09/23/18 18:09 09/23/18 18:09 ED Treatment Course - LABORATORY CBC & Chemistry Diagram: 09/23/18 20:37 09/23/18 20:37 - Medications Given in the ED: ED Medications Discontinued Medications Generic Name Dose Route Start Last Admin Trade Name Freq PRN Reason Stop Dose Admin Ondansetron HCl 4 mg 09/23/18 18:13 09/23/18 18:27 Zofran - PO 09/23/18 18:14 4 mg ONCE ONE Administration Medical Decision Making - Medical Decision Making 09/23/18 19:30 He probably aboutPatient seen by the advanced practice provider under my direct supervision. Ancillary testing reviewed as necessary. I agree with plan as outlined by the advanced practice provider. *DC/Admit/Observation/Transfer Diagnosis at time of Disposition: Positive test, UTI (urinary tract infection) GERD (gastroesophageal reflux disease) Qualifiers: Esophagitis presence: esophagitis presence not specified Qualified Code(s): K21.9 - Gastro-esophageal reflux disease without esophagitis - Referrals - Patient Instructions - Post Discharge Activity
--- NOTE | 2018-09-23 19:39 | PDOC ---
History of Present Illness - General Chief Complaint: Pain Stated Complaint: STOMACH ON FIRE Time Seen by Provider: 09/23/18 18:09 History Source: Patient - History of Present Illness Initial Comments: 09/23/18 19:39 22 year old female c/o epigastric pain x1 week history of GERD has been off GERD meds for over 6 months. + Nausea vomited once. denies fever/ chills, urinary symptoms, vaginal bleeding/ vaginal discharge., has no lower abdominal pain/ pelvic pain PMHX: GERD, anxiety LMP: 08/2018 Past History - Past Medical History Allergies/Adverse Reactions: Allergies Allergy/AdvReac Type Severity Reaction Status Date / Time No Known Allergies Allergy Verified 09/23/18 18:09 Home Medications: Ambulatory Orders Cephalexin Monohydrate [Keflex -] 500 mg PO BID #20 capsule 09/23/18 Doxylamine Succinate/Vit B6 [Diclegis Dr 10-10 mg Tablet] 1 each PO DAILY PRN # 14 tablet.dr 09/23/18 2/Iron/Folic Acid/Om3 [Complete Jamal Dha] 1 each PO DAILY #30 combo..pkg 09/23/18 COPD: No GI Disorders: Yes (GERD) Psychiatric Problems: Yes (ANXIETY) - Immunization History Immunization Up to Date: No - Suicide/Smoking/Psychosocial Hx Smoking History: Never smoked Have you smoked in the past 12 months: No Information on smoking cessation initiated: No Hx Alcohol Use: No Drug/Substance Use Hx: No Substance Use Type: None Review of Systems - Review of Systems Able to Perform ROS?: Yes Is the patient limited Romanian proficient: No Constitutional: No: Symptoms Reported, See HPI, Chills, Diaphoresis, Fever, Loss of Appetite, Malaise, Night Sweats, Weakness, Weight Stable, Unintentional Wgt. Loss, Unexplained wgt Loss, Other HEENTM: No: Symptoms Reported, See HPI, Eye Pain, Blurred Vision, Tearing, Recent change in vision, Double Vision, Cataracts, Ear Pain, Ocular Prothesis, Ear Discharge, Nose Pain, Nose Congestion, Tinnitus, Nose Bleeding, Hearing Loss , Throat Pain, Throat Swelling, Mouth Pain, Dental Problems, Difficulty Swallowing, Mouth Swelling, Other Respiratory: No: Symptoms reported, See HPI, Cough, Orthopnea, Shortness of Breath, SOB with Exertion, SOB at Rest, Stridor, Wheezing, Productive cough, Hemoptysis, Other ABD/GI: Yes: Nausea, Vomiting, Abdominal cramping : No: Symptoms Reported, See HPI, Burning, Dysuria, Discharge, Frequency, Flank Pain, Hematuria, Incontinence, Pain, Urgency, Testicular Mass, Testicular Swelling, Lesions, Testicular Pain, Other *Physical Exam - Vital Signs Last Vital Signs Temp Pulse Resp BP Pulse Ox 98.1 F 101 H 16 135/63 99 09/23/18 18:09 09/23/18 18:09 09/23/18 18:09 09/23/18 18:09 09/23/18 18:09 - Physical Exam General Appearance: Yes: Appropriately Dressed Respiratory/Chest: positive: Lungs Clear, Normal Breath Sounds Cardiovascular: positive: Regular Rate Gastrointestinal/Abdominal: positive: Normal Bowel Sounds, Tender (RUQ and Epigastric area) Musculoskeletal: positive: Normal Inspection. negative: CVA Tenderness Extremity: positive: Normal Capillary Refill, Normal Inspection, Normal Range of Motion Integumentary: positive: Normal Color, Dry, Warm Neurologic: positive: Fully Oriented, Alert, Normal Mood/Affect ED Treatment Course - LABORATORY CBC & Chemistry Diagram: 09/23/18 20:37 09/23/18 20:37 - Medications Given in the ED: ED Medications Discontinued Medications Generic Name Dose Route Start Last Admin Trade Name Freq PRN Reason Stop Dose Admin Ondansetron HCl 4 mg 09/23/18 18:13 09/23/18 18:27 Zofran - PO 09/23/18 18:14 4 mg ONCE ONE Administration Progress Note - Progress Note Progress Note: GERD; + urine , uti P: cbc cmp lipase abdominal US: negative Beta hcg : 12505 bedside pelvic US + IUP/ outpatient production operations inspector follow up *DC/Admit/Observation/Transfer Diagnosis at time of Disposition: Positive test GERD (gastroesophageal reflux disease) Qualifiers: Esophagitis presence: esophagitis presence not specified Qualified Code(s): K21.9 - Gastro-esophageal reflux disease without esophagitis UTI (urinary tract infection) Qualifiers: Urinary tract infection type: acute cystitis Hematuria presence: without hematuria Qualified Code(s): N30.00 - Acute cystitis without hematuria - Discharge Dispostion Disposition: HOME - Prescriptions Prescriptions: Cephalexin Monohydrate [Keflex -] 500 mg PO BID #20 capsule Doxylamine Succinate/Vit B6 [Diclegis Dr 10-10 mg Tablet] 1 each PO DAILY PRN # 14 tablet. PRN Reason: Nausea And/Or Vomiting 2/Iron/Folic Acid/Om3 [Complete Dha] 1 each PO DAILY #30 combo..pkg - Referrals Referrals: Felipe Machado MD [Staff Physician] - Call tomorrow - Patient Instructions Printed Discharge Instructions: DI for -- Discomforts and Remedies Additional Instructions: start a bland diet. do not eat prior to bedtime. eat small meals. please follow up with an guest service agent as soon as possible. return to the ER oif symptoms worsen - Post Discharge Activity Forms/Work/School Notes: Back to Work
[2018-09-23] MEDS ORDERED: PANTOPRAZOLE SODIUM 40 MG VIAL IVPB ONE (19:45)
[2018-09-23] MEDS ORDERED: SUCRALFATE 1 GM TABLET (FP) PO ONE (19:45)
[2018-09-23] MEDS ORDERED: SUCRALFATE 1 GM TABLET (FP) ONE (20:46)
[2018-09-23] MEDS ORDERED: PANTOPRAZOLE SODIUM 40 MG VIAL ONE (20:47)
[2018-09-23] MEDS ORDERED: ONDANSETRON 4 MG/2 ML VIAL IVPB ONE (20:53)
[2018-09-23] MEDS ORDERED: ONDANSETRON 4 MG/2 ML VIAL ONE (20:56)
[2018-09-23 21:02] LABS: HCG,QUALITATIVE URINE Positive
[2018-09-23 21:06] LABS: EPI CELLS 18.5 /HPF (0-5/HPF); URINE APPEARANCE CLOUDY; URINE BACTERIA 998.1 /hpf (NEGATIVE); URINE BILIRUBIN NEGATIVE (NEGATIVE); URINE CASTS 29 /lpf (0-8); URINE COLOR YELLOW; URINE GLUCOSE (UA) NEGATIVE (NEGATIVE); URINE KETONE 4+ (NEGATIVE); URINE LEUK ESTERASE 2+ (NEGATIVE); URINE NITRITE NEGATIVE (NEGATIVE); URINE PROTEIN NEGATIVE (NEGATIVE); URINE WBC 23 /hpf (0-5)
[2018-09-23 21:08] LABS: BASO % 0.3 % (0-2.0); EOS % 0.3 % (0-4.5); HEMOGLOBIN 12.8 GM/dL (10.7-15.3); LYMPH % 17.7 % (8-40); MCH 27.7 pg (25.7-33.7); MCHC 32.9 g/dl (32.0-36.0); MEAN CELL VOLUME 84.2 fl (80-96); MONO % 7.3 % (3.8-10.2); NEUT % 74.4 % (42.8-82.8); PLATELET COUNT 388 K/MM3 (134-434); RBC 4.63 M/mm3 (3.60-5.2); RDW 13.3 % (11.6-15.6); WHITE BLOOD COUNT 9.8 K/mm3 (4.0-10.0)
[2018-09-23 21:14] LABS: URINE RBC 5.1 /hpf (0-4)
[2018-09-23 21:31] LABS: ALBUMIN 4.4 g/dl (3.4-5.0); ALK PHOS 113 U/L (45-117); ANION GAP 11 MMOL/L (8-16); BILIRUBIN,TOTAL 0.8 mg/dL (0.2-1); BLOOD UREA NITROGEN 12 mg/dL (7-18); CALCIUM 9.6 mg/dL (8.5-10.1); CHLORIDE 103 mmol/L (98-107); CO2 22 mmol/L (21-32); CREATININE 0.7 mg/dL (0.55-1.3); GLUCOSE,RANDOM 89 mg/dL (74-106); LIPASE 83 U/L (73-393); POTASSIUM 3.9 mmol/L (3.5-5.1); SGOT/AST 31 U/L (15-37); SGPT/ALT 38 U/L (13-61); SODIUM 136 mmol/L (136-145); TOT PROT 8.2 g/dl (6.4-8.2)
[2018-09-23] MEDS ORDERED: SODIUM CHLORIDE 1,000 ML IV STA (21:36)
[2018-09-23] MEDS ORDERED: CEPHALEXIN MONOHYDRATE 500 MG CAPSULE (UD) PO ONE (22:16)
[2018-09-23] MEDS ORDERED: CEPHALEXIN MONOHYDRATE 500 MG CAPSULE (UD) ONE (22:31)
[2018-09-23 23:01] VITALS: BP 110/76; PULSE 88; TEMP 98.5
== END 2018-09-23 23:02 | disposition home or self-care (01) ==
LOC: JER 18:02
PROC: 3E0337Z Introduction of Electrolytic and Water Balance Substance into Peripheral Vein, Percutaneous Approach (ICD-10-PCS; principal; 2018-09-23)
PROC: 3E033GC Introduction of Other Therapeutic Substance into Peripheral Vein, Percutaneous Approach (ICD-10-PCS; 2018-09-23)
PROC: 3E033GC Introduction of Other Therapeutic Substance into Peripheral Vein, Percutaneous Approach (ICD-10-PCS; 2018-09-23)
DX: O26.891 Other specified pregnancy related conditions, first trimester (principal); O23.31 Infections of other parts of urinary tract in pregnancy, first trimester; O99.611 Diseases of the digestive system complicating pregnancy, first trimester; K21.9 Gastro-esophageal reflux disease without esophagitis; Z3A.00 Weeks of gestation of pregnancy not specified
CPT/HCPCS: 36415; 76705-TC; 80053; 81003; 83690; 84702; 84703; 85025; 99283-25; J7030

== ENCOUNTER 2019-05-10 20:36 | Emergency (ER) | payer OTHER ==
[2019-05-10 20:40] VITALS: BP 116/72; PULSE 92; TEMP 98.1; BMI 20.9
[2019-05-10] MEDS ORDERED: ACETAMINOPHEN WITH CODEINE 300MG/30MG TABLET PO ONE (21:22)
[2019-05-10] MEDS ORDERED: ACETAMINOPHEN WITH CODEINE 300MG/30MG TABLET ONE (22:03)
--- NOTE | 2019-05-10 22:48 | PDOC ---
History of Present Illness - General Chief Complaint: Respiratory Stated Complaint: FLU LIKE SYMPTOMS Time Seen by Provider: 05/10/19 21:15 History Source: Patient Exam Limitations: No Limitations - History of Present Illness Initial Comments: 05/10/19 22:43 23-year-old female with history of asthma presents complaining of dry cough, runny nose, body aches, intermittent headache, subjective fever and chills for 3 days. Reports coworker has the flu. Denies recent travel, chest pain, shortness of breath, abdominal pain, nausea, vomiting, diarrhea, back pain, urinary symptoms or any other complaints. ROS: GENERAL/CONSTITUTIONAL: Positive fever, chills, denies weakness, dizziness HEAD, EYES, EARS, NOSE AND THROAT: No changes in vision, No ear pain or discharge, No sore throat CARDIOVASCULAR: No chest pain RESPIRATORY: Cough, denies shortness of breath GASTROINTESTINAL: No pain, nausea, vomiting, diarrhea or constipation GENITOURINARY: No dysuria MUSCULOSKELETAL: No neck or back pain SKIN: No rash NEUROLOGIC: Remittent headache, vertigo, loss of consciousness, or loss of sensation PE: GENERAL: well-appearing, NAD HEAD: NCAT EYES: Pupils equal, round and reactive to light, sclera anicteric, conjunctiva clear ENT: pharynx: no erythema, no exudate, uvula midline NECK: supple CHEST: nontender RESP: clear, no w/r/r CARDIO: rrr, no m/g/r ABD: +BS, soft, nontender, non distended BACK: no midline spinal ttp, no CVAT EXTREMITIES: Normal range of motion, no edema NEUROLOGICAL: Normal speech, normal gait SKIN: Warm, Dry Past History - Past Medical History Allergies/Adverse Reactions: Allergies Allergy/AdvReac Type Severity Reaction Status Date / Time No Known Allergies Allergy Verified 05/10/19 20:40 Home Medications: Ambulatory Orders Cephalexin Monohydrate [Keflex -] 500 mg PO BID #20 capsule 09/23/18 Doxylamine Succinate/Vit B6 [Franki Roa 10-10 mg Tablet] 1 each PO DAILY PRN # 14 tablet. 09/23/18 2/Iron/Folic Acid/Om3 [Complete Dha] 1 each PO DAILY #30 combo..pkg 09/23/18 Asthma: Yes COPD: No GI Disorders: Yes (GERD) Psychiatric Problems: Yes (ANXIETY) - Immunization History Immunization Up to Date: No - Psycho Social/Smoking Cessation Hx Smoking History: Never smoked Have you smoked in the past 12 months: No Hx Alcohol Use: No Drug/Substance Use Hx: No Substance Use Type: None *Physical Exam - Vital Signs Last Vital Signs Temp Pulse Resp BP Pulse Ox 98.1 F 92 H 18 116/72 99 05/10/19 20:38 05/10/19 20:38 05/10/19 20:38 05/10/19 20:38 05/10/19 20:38 ED Treatment Course - RADIOLOGY Radiology Studies Ordered: Category Date Time Status CHEST PA & LAT [RAD] Stat Radiology 05/10/19 21:21 Taken - Medications Given in the ED: ED Medications Discontinued Medications Generic Name Dose Route Start Last Admin Trade Name Freq PRN Reason Stop Dose Admin Acetaminophen/Codeine Phosphate 1 tab 05/10/19 21:22 05/10/19 21:27 Tylenol # 3 - PO 05/10/19 21:23 1 tab ONCE ONE Administration Medical Decision Making - Medical Decision Making 05/10/19 22:45 23-year-old female history of asthma complaining of cough, nasal congestion, subjective fever, chills, body aches x3 days. Influenza A positive Tylenol #3 one tab given Chest x-ray no acute finding read by me, urine test pending however patient states she is not Note for work provided Will send Tamiflu prescription to pharmacy Return precautions discussed Discharge - Discharge Information Problems reviewed: Yes Clinical Impression/Diagnosis: Influenza A Condition: Stable Disposition: HOME - Follow up/Referral - Patient Discharge Instructions Additional Instructions: Take Tamiflu 75 mg 1 tablet twice a day for 5 days Follow-up with your doctor within 1 week Note for work provided Return to ED if worsening symptoms - Post Discharge Activity Work/Back to School Note: Back to Work
== END 2019-05-10 22:56 | disposition home or self-care (01) ==
LOC: JERFT 20:36
DX: J09.X2 Influenza due to identified novel influenza A virus with other respiratory manifestations (principal); J45.909 Unspecified asthma, uncomplicated; K21.9 Gastro-esophageal reflux disease without esophagitis; F41.9 Anxiety disorder, unspecified
CPT/HCPCS: 71046-TC-FY; 87804; 99281-25